=== PATIENT | female | born 1995 | race African-American/Black ===

== ENCOUNTER 2017-04-04 08:46 | Emergency (ER) | payer SELFPAY ==
[~2017-04-04] VITALS: Ht 165.1 cm; Wt 47.1 kg
[2017-04-04 08:53] VITALS: BP 123/76; PULSE 76; RESP 16; TEMP 98.2; O2SAT 100
[2017-04-04 09:18] LABS: BILIRUBIN, URINE NEG (NEG); BLOOD, URINE LARGE (NEG); GLUCOSE,URINE NEG (NEG); KETONE, URINE NEG (NEG); NITRITE,URINE NEG (NEG); PH, URINE 6.5 (5.0-8.5); URINE LEUKOCYTE ESTERASE NEG (NEG)
[2017-04-04 09:22] LABS: URINE COLOR PINK (YELLW/STRAW)
[2017-04-04 09:24] LABS: SQUAMOUS EPITHELIAL CELL URINE 0-5 /hpf (0-5)
[2017-04-04 09:25] LABS: BACTERIA, URINE RARE /hpf
--- NOTE | 2017-04-04 09:29 | PD ---
HPI Chief Complaint: Complaint Time Seen by Provider: 09:17 Travel History International Travel<30 days: No Contact w/Intl Traveler<30days: No History of Present Illness HPI 22 YO F presents to the ED for evaluation of one day history of urinary urgency , white vaginal discharge and 2/10 stinging, post void vaginal pain. Gradual onset. No alleviating or exacerbating factors reported. Patient denies fever, chills, abdominal pain, nausea, vomiting. She states she is on the first day of her menstrual period. She endorses unprotected sex on [place] with a male and female partner. She states that the female partner is experiencing similar symptoms. She's never had symptoms like this before. 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 PFSH Past Medical History ?: Not LMP: NOW Social History Tobacco Use: No Allergies-Medications (Allergen,Severity, Reaction): Coded Allergies: No Known Allergies (Unverified , 04/04/17) Reported Meds & Prescriptions Reported Meds & Active Scripts Active Bactrim DS (Sulfamethoxazole-Trimethoprim) 800-160 Mg Tab 1 Tab PO BID Review of Systems Except as stated in HPI: all other systems reviewed are Neg Physical Exam Narrative GENERAL: Well-nourished, well-developed, thin, petite female in no acute distress. SKIN: Focused skin assessment warm/dry. HEAD: Normocephalic. EYES: No scleral icterus. No injection or drainage. NECK: Supple, trachea midline. No JVD or lymphadenopathy. CARDIOVASCULAR: Regular rate and rhythm without murmurs, gallops, or rubs. RESPIRATORY: Breath sounds clear and equal bilaterally. No accessory muscle use. GASTROINTESTINAL: Abdomen soft, non-tender, nondistended. Active bowel sounds. GENITOURINARY: Normal external genitalia without lesions or erythema. Vaginal vault with scant blood and thin white drainage. Cervical os was closed without drainage. No cervical motion tenderness. Uterus nontender and nonenlarged. Bilateral adnexa nontender without masses. MUSCULOSKELETAL: No cyanosis, or edema. BACK: Nontender without obvious deformity. No CVA tenderness. Data Data Last Documented VS Vital Signs Date Time Temp Pulse Resp B/P (MAP) Pulse Ox O2 Delivery O2 Flow Rate FiO2 04/04/17 11:19 04/04/17 08:53 98.2 76 16 100 Orders Orders Urinalysis - C+S If Indicated (04/04/17 09:06) Ed Urine Pregnancytest Poc (04/04/17 09:06) Gc And Chlamydia Pcr (04/04/17 09:52) Wet Prep Profile (04/04/17 09:52) Azithromycin Powd Pack (Zithromax Powd P (04/04/17 10:30) Ceftriaxone Inj (Rocephin Inj) (04/04/17 10:30) Ed Discharge Order (04/04/17 10:24) Lidocaine 1% Inj (Xylocaine 1% Inj) (04/04/17 10:30) Labs Laboratory Tests Test 04/04/17 09:05 04/04/17 09:58 Urine Collection Type CLEAN CATCH Urine Color PINK Urine Turbidity CLOUDY Urine pH 6.5 Urine Specific [place] 1.020 Urine Protein TRACE mg/dL Urine Glucose (UA) NEG mg/dL Urine Ketones NEG mg/dL Urine Occult Blood LARGE Urine Nitrite NEG Urine Bilirubin NEG Urine Leukocyte Esterase NEG Urine RBC 50-99 /hpf Urine Squamous Epithelial Cells 0-5 /hpf Urine Bacteria RARE /hpf Microscopic Urinalysis Comment CULT NOT INDICATED Clue Cells (Wet Prep) NONE SEEN Vaginal Trichomonas (Wet Prep) NONE SEEN Vaginal Yeast (Wet Prep) NONE SEEN MDM Medical Decision Making Medical Screen Exam Complete: Yes Emergency Medical Condition: Yes Differential Diagnosis UTI versus vaginal candidiasis versus chlamydia versus gonorrhea versus other Narrative Course 22 YO F presents to the ED for evaluation of one day history of urinary urgency , white vaginal discharge and post void vaginal pain. Patient denies fever, chills, abdominal pain, nausea, vomiting. She endorses unprotected sex on with a male and female partner. She states that the female partner is experiencing similar symptoms. Vitals reviewed. Physical exam reveals a petite, thin female in no acute distress. Abdominal exam is unremarkable. Pelvic exam reveals small amount of blood and thin white drainage in the vaginal vault, otherwise unremarkable. ED urine test negative. UA with rare bacteria, no culture indicated. Wet prep negative. I discussed the possibility of infection with gonorrhea and chlamydia as well as the extended wait time for the serology to be reported. Patient opts for empiric treatment. Also prescribed Bactrim DS twice a day 3 days as this could be early UTI. I discussed the results of the workup with the patient as well as the need for follow-up with [facility] for full battery of STD testing. I encouraged her to use barrier methods for future sexual encounters, follow-up as discussed. We discussed reasons to return to the ED. She indicated understanding of instructions and is agreeable to the care plan. She is stable and discharged home. Diagnosis Primary Impression: Vaginal discharge Additional Impression: Urinary urgency Referrals: [facility] [employer] Dept. Patient Instructions: General Instructions, Safe Sex (ED), Urinary Tract Infection in Women (ED) Additional Instructions: Rest, hydrate. Use barrier methods (condoms) during sexual activity. Take all medication as prescribed until the last pill is gone. Follow-up with health department for test of cure. Abstain from sex until test of cure is proven. All sexual partners should be tested and treated as needed. Follow-up with the health department for a full battery of STD testing. Return to the ED for any urgent or emergent medical condition. Med/Other Pt SpecificInfo: Prescription(s) given Scripts Sulfamethoxazole-Trimethoprim (Bactrim DS) 800-160 Mg Tab 1 TAB PO BID for Infection, #6 TAB 0 Refills Prov: Tushar Kumar MD 04/04/17 Disposition: DISCHARGE HOME Condition: Stable Sandy Anthony Apr 04, 2017 09:29
[2017-04-04] MEDS ORDERED: BACT800T5 PO (10:23)
[2017-04-04] MEDS ORDERED: LIDOCAINE HCL 1% 20 ML VIAL OTHER ONE (10:30)
[2017-04-04] MEDS ORDERED: AZITHROMYCIN PWD FOR SUSP 1 GM PACKET PO ONE (10:30)
[2017-04-04] MEDS ORDERED: cefTRIAXone 250 MG VIAL IM ONE (10:30)
[2017-04-04] MEDS ORDERED: LIDOCAINE HCL 1% 50 ML VIAL IM ONE (10:30)
== END 2017-04-04 11:19 | disposition home or self-care (01) ==
LOC: PHEFT 08:46
DX: N89.8 Other specified noninflammatory disorders of vagina (principal); R39.15 Urgency of urination
CPT/HCPCS: 81001; 84703; 87210; 87491; 87591; 96372; 99284; J0696